=== PATIENT | female | born 1990 | race Hispanic/Latino ===

== ENCOUNTER 2020-06-23 12:49 | Emergency (ER) | payer OTHER, SELFPAY ==
[2020-06-23 12:54] VITALS: BP 157/68; PULSE 88; RESP 16; TEMP 36.9; O2SAT 100
--- NOTE | 2020-06-23 13:38 | DI.RAD.S_ITS ---
PROCEDURE: XR CHEST 2V INDICATIONS: sob, cleary, cough TECHNIQUE: 2 views of the chest were acquired. COMPARISON: None. FINDINGS: Surgical changes and devices: None. Lungs and pleura: Lungs are clear. No pleural effusions or pneumothorax. Mediastinum: Mediastinal contours are normal. Heart size is normal. Bones and chest wall: No suspicious bony abnormalities. Soft tissues appear unremarkable. IMPRESSION: No evidence acute pulmonary process. Dictated by: Karsten Vallejo M.D. on 06/23/2020 at 14:38 Approved by: Karsten Vallejo M.D. on 06/23/2020 at 14:38
[2020-06-23] MEDS: ONDANSETRON 4 MG ODT SL (13:49)
[2020-06-23] MEDS: ACETAMINOPHEN 325 MG TABLET 650 MG PO (13:49)
[2020-06-23] MEDS: IBUPROFEN 400 MG TABLET PO (13:49)
[2020-06-23 14:04] LABS: Add Manual Diff / Slide Review NO; Basophils Absolute Auto 100 /uL (0-100); Basophils Percent Auto 0.9 % (0-2); Eosinophils Absolute Auto 300 /uL (0-450); Eosinophils Percent Auto 4.1 % (2-4); Hematocrit 42.7 % (36-46); Hemoglobin 14.4 g/dL (12.0-16.0); Lymphocytes Absolute Auto 2900 /uL (1100-4500); Lymphocytes Percent Auto 37.3 % (25-40); Mean Corpuscular HGB Conc 33.7 % (30-36); Mean Corpuscular Hemoglobin 29.8 PG (26-34); Mean Corpuscular Volume 88.4 fL (80-100); Monocytes Absolute Auto 300 /uL (0-900); Monocytes Percent Auto 4.1 % (3-14); Neutrophils Absolute Auto 4100 /uL (1500-7000); Neutrophils Percent Auto 53.6 % (50-75); Platelet Count 209 X10^3/uL (150-400); Red Blood Cell Count 4.83 X10^6/uL (4.0-5.2); Red Cell Distribution Width 14.9 % (11.6-14.8); White Blood Cell Count 7.7 X10^3/uL (4.5-11.0)
[2020-06-23 14:13] LABS: BUN Creatinine Ratio 11.3 (6-22); Blood Urea Nitrogen 7 mg/dL (7-17); Calcium 8.7 mg/dL (8.4-10.2); Carbon Dioxide 29 mmol/L (22-32); Chloride 105 mmol/L (98-107); Estimated Glomerular Filt Rate > 60.0 mL/min (>60); Glucose 114 mg/dL (70-100); HEMOLYSIS < 15 (0-50); Potassium 4.1 mmol/L (3.4-5.1); Sodium 139 mmol/L (137-145)
--- NOTE | 2020-06-23 14:17 | ED.NAVMDI ---
HPI - Nausea/Vomiting/Diarrhea <MINNIE LaiP - Last Filed: 06/23/20 22:46> General Chief complaint: Nausea/Vomiting/Diarrhea Stated complaint: NAUSEA COUGH LOWER BACK PAIN Time Seen by Provider: 06/23/20 13:00 Source: patient Mode of arrival: Ambulatory Limitations: no limitations History of Present Illness HPI Narrative: This is a 30-year-old female, nonsmoker, who has history of hypothyroidism and PCOS presents to ED with left flank pain for 2 weeks, nausea and 2 episodes of vomiting yesterday. Patient reports she is able to tolerate liquids when she is not vomiting. Patient reports mild dizziness. She reports associated symptoms with headache, mild short of breath, intermittent cough for 1 year. Patient denies sore throat, ear pain, diarrhea. Patient reports mild chest pain with coughing. After she had flu and bronchitis 2 years ago, patient has reached usual pulmonary symptoms. Patient is unsure of aggravating and relieving factors for back pain. She denies urinary symptoms such as urgency, frequency, dysuria. LMP 2 years ago and reports she has irregular menstruations due to PCOS. Patient works as a [employer] at [employer] but has been using appropriate PPE as instructed. Related Data Previous Rx's Medication Instructions Recorded ondansetron 4 mg PO Q8-12H PRN #7 tab 06/23/20 Allergies Allergy/AdvReac Type Severity Reaction Status Date / Time No Known Drug Allergies Allergy Verified 06/23/20 13:00 Review of Systems <MINNIE LaiP - Last Filed: 06/23/20 22:46> Review of Systems Narrative: General: Denies fever, chills, fatigue, malaise, sweats. HEENT: Denies sinus pain, ear pain, sore throat, difficulty swallowing, dizziness. Respiratory: See HPI Cardiovascular: Denies (+) chest pain with cough, palpitations, orthopnea, edema. Gastrointestinal: See HPI : Denies dysuria, frequency, incontinence, hematuria, urinary retention. Musculoskeletal: See HPI Skin: Denies rash, skin lesions, or other. Neurologic: Denies weakness, headache, numbness, change in speech, confusion, seizures, incoordination. Psychiatric: No concerning psychosocial issues. 12-point review of systems is negative except for those stated above. Patient History <Jeremi NorwoodKIM Jordan - Last Filed: 06/23/20 22:46> Medical History (Updated 06/23/20 @ 15:08 by KIM Lai) Hypothyroidism (Acute) PCOS (polycystic ovarian syndrome) (Acute) Social History Smoking Status: Unknown if ever smoked Smoking Status: Unknown if ever smoked alcohol intake frequency: holidays/special occasions only Substance Use Type: does not use Exam <KIM Lai - Last Filed: 06/23/20 22:46> Narrative Exam Narrative: GEN: Alert, oriented x 3, well appearing and nourished, and in no acute distress. Head: Normal cephalic, atraumatic. No scalp or temporal tenderness, palpable mass or rash. EYES: Pupils are equal, round, and reactive to light and accommodation. Extraocular muscles are intact bilaterally. There is no subconjunctival hemorrhage, exudate and sclera non-icteric. ENT: Hearing grossly intact. Nose without bleeding, purulent discharge or deviation. Facial sinuses nontender to palpate. Mucous membrane moist, no mucosal lesion. Throat without erythema, but moderate tonsillar hypertrophy. No tonsillar exudate. Uvula in midline, airway patent. Neck: Trachea in midline. No JVD, non-tender without lymphadenopathy. No masses or thyroid megaly. Supple, non-tender and no meningeal signs. CARDIAC: Normal regular rate and rhythm without murmurs, gallops, or rubs. No chest wall tenderness. No peripheral edema, cyanosis or pallor. Capillary refill is less than 2 seconds. RESPIRATORY: Lungs are decreased to auscultate bilaterally. No cough, wheezes, rales, or rhonchi. No stridor, respiratory distress, increase work of breathing, or accessary muscle used. ABD: Abdomen soft, nontender and non-distended. No guarding or rebound tenderness to palpate. Bowel sounds are normal in all 4 quadrants. There is no palpable masses or organomegaly. EXT: Full painless ROM of all extremities with no loss of sensation, strength, effusion or edema. SKIN: Warm, dry, normal color for patient. No erythema, lesions or rash over visible areas. BACK: Nontender without deformity or crepitance. No flank tenderness. NEUROLOGICAL: Alert and oriented to place, time and person. Sensation and motor function intact bilaterally. No facial droops, dysphasia. PSYCHIATRIC: Good judgement and reason, without hallucinations, abnormal affect or abnormal behaviors during the examination. Patient is not suicidal. Initial Vital Signs Initial Vital Signs: Vital Signs Temperature 98.5 F 06/23/20 12:54 Pulse Rate 88 06/23/20 12:54 Respiratory Rate 16 06/23/20 12:54 Blood Pressure 157/68 H 06/23/20 12:54 Pulse Oximetry 100 06/23/20 12:54 <rFed Meredith DO - Last Filed: 06/24/20 07:09> Initial Vital Signs Initial Vital Signs: Vital Signs Temperature 98.5 F 06/23/20 12:54 Pulse Rate 88 06/23/20 12:54 Respiratory Rate 16 06/23/20 12:54 Blood Pressure 157/68 H 06/23/20 12:54 Pulse Oximetry 100 06/23/20 12:54 Scores <KIM Lai - Last Filed: 06/23/20 22:46> GCS [place] coma scale eye opening: Spontaneous [place] coma scale verbal response: Orientated [place] coma scale motor response: Obey commands [place] coma scale total score: 15 qSOFA Altered Mental Status (GCS <15): No Respiratory rate greater than/equal to 22: No Systolic blood pressure less than or equal to 100: No qSOFA Total: 0 0-1 Not High Risk 1-3 High risk Course <KIM Lai - Last Filed: 06/23/20 22:46> Orders Ordered: Discontinued Medications Acetaminophen (Tylenol) 650 mg PO NOW ONE Stop: 06/23/20 13:41 Last Admin: 06/23/20 13:49 Dose: 650 mg Documented by: ISMAEL Ibuprofen (Advil) 400 mg PO NOW ONE Stop: 06/23/20 13:41 Last Admin: 06/23/20 13:49 Dose: 400 mg Documented by: ISMAEL Ondansetron HCl (Zofran Odt) 4 mg SL NOW ONE Stop: 06/23/20 13:39 Last Admin: 06/23/20 13:49 Dose: 4 mg Documented by: ISMAEL Vital Signs Vital signs: Vital Signs - 8 hr 06/23/20 15:16 Pulse Rate 76 Blood Pressure 102/51 L Pulse Oximetry 100 <Fred Meredith DO - Last Filed: 06/24/20 07:09> Orders Ordered: Discontinued Medications Acetaminophen (Tylenol) 650 mg PO NOW ONE Stop: 06/23/20 13:41 Last Admin: 06/23/20 13:49 Dose: 650 mg Documented by: ISMAEL Ibuprofen (Advil) 400 mg PO NOW ONE Stop: 06/23/20 13:41 Last Admin: 06/23/20 13:49 Dose: 400 mg Documented by: ISMAEL Ondansetron HCl (Zofran Odt) 4 mg SL NOW ONE Stop: 06/23/20 13:39 Last Admin: 06/23/20 13:49 Dose: 4 mg Documented by: ISMAEL Vital Signs Vital signs: Vital Signs - 8 hr 06/23/20 15:16 Pulse Rate 76 Blood Pressure 102/51 L Pulse Oximetry 100 MDM - Nausea/Vomiting/Diarrhea <Jeremi KIM Huang - Last Filed: 06/23/20 22:46> Differential Diagnosis Differential diagnosis: Likely dehydration and other (Gastritis, UTI, , Covid, bronchitis, kidney stone) Medical Records Attestation: I reviewed the patient's medical records. Lab Data Attestation: I reviewed the patient's lab results. Result diagrams: 06/23/20 13:52 06/23/20 13:52 Labs: Lab Results 06/23/20 06/23/20 06/23/20 Range/Units 13:32 13:52 13:52 WBC 7.7 (4.5-11.0) X10^3/uL RBC 4.83 (4.0-5.2) X10^6/uL Hgb 14.4 (12.0-16.0) g/dL Hct 42.7 (36-46) % MCV 88.4 (80-100) fL MCH 29.8 (26-34) PG MCHC 33.7 (30-36) % RDW 14.9 H (11.6-14.8) % Plt Count 209 (150-400) X10^3/uL Neut % (Auto) 53.6 (50-75) % Lymph % (Auto) 37.3 (25-40) % [place] % (Auto) 4.1 (3-14) % Eos % (Auto) 4.1 H (2-4) % Baso % (Auto) 0.9 (0-2) % Neut # (Auto) 4100 (1113-8241) /uL Lymph # (Auto) 2900 (2875-5080) /uL [place] # (Auto) 300 (0-900) /uL Eos # (Auto) 300 (0-450) /uL Baso # (Auto) 100 (0-100) /uL Sodium 139 (137-145) mmol/L Potassium 4.1 (3.4-5.1) mmol/L Chloride 105 (98-107) mmol/L Carbon Dioxide 29 (22-32) mmol/L BUN 7 (7-17) mg/dL Creatinine 0.62 (0.52-1.04) mg/dL Estimated GFR > 60.0 (>60) mL/min BUN/Creatinine Ratio 11.3 (6-22) Glucose 114 H (70-100) mg/dL Calcium 8.7 (8.4-10.2) mg/dL COVID-19 PCR Negative (Negative) Point of Care Testing Test Results Negative Urine Dip Bedside Urine Glucose Negative Bedside Urine Bilirubin - Negative Bedside Urine Ketone - Negative Urine Specific [place] 1.015 Bedside Urine Occult Blood + Bedside Urine pH 6.5 Bedside Urine Protein - Negative Bedside Urine Urobilinogen - Negative Bedside Urine Nitrite - Negative Bedside Urine Leukocytes - Negative Esterase Imaging Data Chest x-ray: Radiologist's Impression: [address] [address] XRay Report Signed Patient: Yvonne Reid CMR#: [id number] : 1990Acct:[id number] Age/Sex: 30 / FDate of Service: 06/23/20 Loc: ED Accession Number: [id number] Procedure: XR chest 2V Ordering Provider: Jeremi Huang PROCEDURE: XR CHEST 2V INDICATIONS: sob, cleary, cough TECHNIQUE: 2 views of the chest were acquired. COMPARISON: None. FINDINGS: Surgical changes and devices: None. Lungs and pleura: Lungs are clear. No pleural effusions or pneumothorax. Mediastinum: Mediastinal contours are normal. Heart size is normal. Bones and chest wall: No suspicious bony abnormalities. Soft tissues appear unremarkable. IMPRESSION: No evidence acute pulmonary process. Dictated by: Karsten Vallejo M.D. on 06/23/2020 at 14:38 Approved by: Karsten Vallejo M.D. on 06/23/2020 at 14:38 CT-KUB: Radiologist's Impression: [address] [id number] [address] Scan Report Signed Patient: Yvonne Reid CMR#: [id number] : 1990Acct:[id number] Age/Sex: 30 / FDate of Service: 06/23/20 Loc: ED Accession Number: [id number] Procedure: CT kidney ureter bladder (KUB) Ordering Provider: Jeremi Huang PROCEDURE: CT KIDNEY URETER BLADDER (KUB) INDICATIONS: hematuria, left back pain TECHNIQUE: Noncontrast 5 mm thick sections acquired from the diaphragms to the symphysis. 5 mm thick coronal and sagittal reformats were then performed. For radiation dose reduction, the following was used: automated exposure control, adjustment of mA and/or kV according to patient size. COMPARISON: None. FINDINGS: Image quality: Excellent. Lung bases: Lung bases are clear. Heart size is normal. Urinary system: Both kidneys are normal in size. No kidney stones. No hydronephrosis or perinephric fat stranding. Both ureters appear non-dilated throughout their expected courses. Bladder wall thickness is normal; no calcified bladder stones. Other solid organs: Mild hepatomegaly. Hepatic steatosis. Gallbladder is unremarkable. Pancreas is normal in contours. Spleen is normal in size. No adrenal nodules. Peritoneum and bowel: Unenhanced bowel loops demonstrate normal wall thickness and caliber. No free fluid or air. Nodes and vessels: No retroperitoneal or mesenteric adenopathy by size criteria. Aorta and inferior vena cava are normal in caliber. Abdominal wall: No ventral hernias. Pelvis: No free pelvic fluid. No inguinal hernias or adenopathy. Bones: No suspicious bony lesions. No vertebral body compression fractures. 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 Urine test for Hcg was negative. No indications for UTI but had positive for blood. Lung sounds were decreased without wheezing, rhonchi, or stridor. Physical exam was not consistent with pyelonephritis. Given the patient has risk and possible exposure for Covid, the swab was obtained which was negative. CXR result indicates no acute findings. Concerned for renal stone with patient's history and blood in urine, KUB CT test was ordered and obtained. CT result without evidence of renal or ureter stones or hydro nephrosis. Incidental findings of mild hepatomegaly and steatosis without acute abdominal process. Patient's vital signs stable without fever and sating 100% in RA. Patient was medicated with Zofran, Tylenol and Motrin in ED which helped symptoms. Patient's back pain is likely from musculoskeletal etiology and unsure of clear reasons for nausea or vomiting. Patient advised to continue with Zofran, Tylenol and or Motrin as needed for discomfort, nausea and vomiting. Return precautions were discussed with patient and she verbalized understanding in agreement with the treatment plan. <Fred Meredith DO - Last Filed: 06/24/20 07:09> Lab Data Labs: Lab Results 06/23/20 06/23/20 06/23/20 Range/Units 13:32 13:52 13:52 WBC 7.7 (4.5-11.0) X10^3/uL RBC 4.83 (4.0-5.2) X10^6/uL Hgb 14.4 (12.0-16.0) g/dL Hct 42.7 (36-46) % MCV 88.4 (80-100) fL MCH 29.8 (26-34) PG MCHC 33.7 (30-36) % RDW 14.9 H (11.6-14.8) % Plt Count 209 (150-400) X10^3/uL Neut % (Auto) 53.6 (50-75) % Lymph % (Auto) 37.3 (25-40) % [place] % (Auto) 4.1 (3-14) % Eos % (Auto) 4.1 H (2-4) % Baso % (Auto) 0.9 (0-2) % Neut # (Auto) 4100 (1113-4751) /uL Lymph # (Auto) 2900 (8085-4065) /uL [place] # (Auto) 300 (0-900) /uL Eos # (Auto) 300 (0-450) /uL Baso # (Auto) 100 (0-100) /uL Sodium 139 (137-145) mmol/L Potassium 4.1 (3.4-5.1) mmol/L Chloride 105 (98-107) mmol/L Carbon Dioxide 29 (22-32) mmol/L BUN 7 (7-17) mg/dL Creatinine 0.62 (0.52-1.04) mg/dL Estimated GFR > 60.0 (>60) mL/min BUN/Creatinine Ratio 11.3 (6-22) Glucose 114 H (70-100) mg/dL Calcium 8.7 (8.4-10.2) mg/dL COVID-19 PCR Negative (Negative) Point of Care Testing Test Results Negative Urine Dip Bedside Urine Glucose Negative Bedside Urine Bilirubin - Negative Bedside Urine Ketone - Negative Urine Specific [place] 1.015 Bedside Urine Occult Blood + Bedside Urine pH 6.5 Bedside Urine Protein - Negative Bedside Urine Urobilinogen - Negative Bedside Urine Nitrite - Negative Bedside Urine Leukocytes - Negative Esterase Discharge Plan Departure Patient Disposition: Home Clinical Impression: Cough Nausea & vomiting Qualifiers: Vomiting type: unspecified Vomiting Intractability: non-intractable Qualified Code(s): R11.2 - Nausea with vomiting, unspecified Back pain Qualifiers: Back pain location: low back pain Chronicity: unspecified Back pain laterality: left Sciatica presence: without sciatica Qualified Code(s): M54.5 - Low back pain Discharge Date/Time: 06/23/20 15:17 Instructions: DI for Low Back Pain, DI for Cough -- Adult, Nausea and Vomiting-Adult Activity Restrictions/Additional Instructions: You have been diagnosed with [nausea/vomiting, cough, and low back pain. KUB CT test was negative for stone, hydronephrosis, indications for infection. According to CT, you have fatty liver. Urine test does not indicate infection. Negative test for urine test. CBC and BMP are unremarkable. Chest x-ray without acute findings. Covid test was negative. ]. What to do: *Take your medications as directed. Take Zofran as needed for nausea and vomiting and to hydrate well. You can take warm honey water to help with cough. *Follow up with your primary care provider in 2-3 days, call for an appointment. Let them know you were seen in the ED and that we asked you to be seen in follow up. *Return to ED if you have any new, worsening, or concerning symptoms, such as [fever, chills, unable to tolerate fluids, chest pain, breathing difficulty, or any acute concerns]. Prescriptions: New ondansetron 4 mg tablet,disintegrating 4 mg PO Q8-12H PRN (Reason: nausea and vomiting) Qty: 7 RF: 0 Referrals: [facility] [Outside] <Fred Meredith, DO - Last Filed: 06/24/20 07:09> [facility] ED [facility]: Dr Meredith Co-Sign Statement: I was available for consultation during this patient's emergency department visit. This chart is signed by myself for administrative purposes only. I did not have direct contact with this patient during this visit. They were seen independently by the APC.
[2020-06-23 14:42] LABS: COVID19 -Nasal RAPID Negative (Negative)
[2020-06-23 15:16] VITALS: BP 102/51; PULSE 76; O2SAT 100
== END 2020-06-23 15:17 | disposition home or self-care (01) ==
PROVIDERS: Emergency Medicine; Emergency Provider Nurse Practitioner Family
DX: R05 Cough (principal); R11.2 Nausea with vomiting, unspecified; M54.5 Low back pain; R42 Dizziness and giddiness; R07.9 Chest pain, unspecified; R31.9 Hematuria, unspecified; R06.02 Shortness of breath
CPT/HCPCS: 71046; 74176; 80048; 81003; 81025; 85025; 87635; 99283; 99284